=== PATIENT | female | born 1935 | race Caucasian/White ===

== ENCOUNTER 2016-11-28 12:45 | Inpatient (IN) | payer MEDICARE, BC ==
[~2016-11-28] VITALS: Ht 152.4 cm; Wt 75.3 kg
--- NOTE | ~2016-11-28 | HP ---
[facility] 81 Y [address] ROOM: [place] [address] LOCATION: [facility] [place] ADMIT DATE: 11/28/2016 History & Physical DISCHARGE DATE: FAMILY PHYSICIAN: PHYSICIAN, UNKNOWN ATTENDING PHYSICIAN: ANOOP OLMOS DATE OF SERVICE: CHIEF COMPLAINT: Abdominal pain. HISTORY OF PRESENT ILLNESS: An 81-year-old lady with a past medical history of insulin-dependent diabetes mellitus and hypertension. Had abdominal pain, initially about 1 week ago which was located in the right upper quadrant. She went to the local emergency department where did show CBD dilatation and cholelithiasis. General surgery consultation was made and she was planned to undergo cholecystectomy on 12/02/2016, but in the interim, she developed more severe abdominal pain in the right upper quadrant which is sharp, present all the time, 10/10, relieved with medication, increased with food, no radiation, not associated with any fever, but she has been cold. She denied any constipation or diarrhea, but did complain about darkening of urine. No chest pain, shortness of breath, headache, vomiting, or extremity swelling reported. REVIEW OF SYSTEMS: All other systems reviewed are negative except what is mentioned in the HPI. PAST MEDICAL HISTORY: Insulin-dependent diabetes mellitus, hypertension, hypothyroidism, TIA, osteoarthritis. MEDICATIONS: Being reconciled right now. ALLERGIES: THE PATIENT IS ALLERGIC TO CINNAMON AND CODEINE. SOCIAL HISTORY: Never a smoker. No alcohol or drug abuse. FAMILY HISTORY: Significant for diabetes on maternal side. PHYSICAL EXAMINATION: VITAL SIGNS: Blood pressure 145/68, 65, saturating 95% on room air, 16. PATIENT'S NAME: KEVIN SCHULTZ [facility] AGE: 81 Y [address] ROOM: [place] [id number] LOCATION: [facility] [place] ADMIT DATE: 11/28/2016 History & Physical DISCHARGE DATE: FAMILY PHYSICIAN: PHYSICIAN, UNKNOWN ATTENDING PHYSICIAN: ANOOP OLMOS GENERAL: No acute distress. Alert and oriented x3. HEENT: Head is atraumatic, normocephalic. Eyes, positive icterus. Negative pallor. Oropharynx, dry mucous membranes. CARDIOVASCULAR: S1, S2. No murmurs, gallops, rubs. LUNGS: Clear to auscultation bilaterally. ABDOMEN: Soft, tender in the right upper quadrant. No rebound tenderness. No Miller sign noted. Bowel sounds are present. EXTREMITIES: No clubbing, cyanosis, or edema. PSYCH: Normal affect, mood, and speech. SKIN: Mild superficial bruises noted in the bilateral panda area. MUSCULOSKELETAL: No muscle tenderness or joint swelling noted. NEUROLOGIC: Cranial nerves 2 through 12 intact. No motor or sensory deficit noted. Endocrine: No thyromegaly or cushingoid features noted. LYMPHATICS: No lymphangitis or lymphadenopathy present. LABORATORY DATA: Lab work from outside facility was impressive for AST of 770, ALT of 505, alkaline phosphatase of 504, and bilirubin 4.0. She also had creatinine elevating to 1.3. CBC was unremarkable. An ultrasonography was also done today which did show CBD dilatation up to 1.2 cm. No stone could be seen. Previous ultrasonography had similar appearance but less CBD dilatation. ASSESSMENT/PLAN: 1. Acute biliary obstruction. 2. Elevated liver enzymes. 3. Choledocholithiasis. 4. Jaundice. 5. Acute kidney injury. 6. Insulin-dependent diabetes mellitus. 7. Hypertension. PLAN: We are going to admit this lady, made her n.p.o., generous intravenous fluids. One dose of ertapenem has already been given, we will continue that. GI consultation and supportive care with Zofran and pain medication. Likely ERCP by GI and then we will consider General surgery. SCDs for DVT prophylaxis. Sliding scale insulin. HbA1c. Resume home medications. MD CHANCE ANTOINE/gardenia PATIENT'S NAME: KEVIN SCHULTZ [facility] AGE: 81 Y [address] ROOM: [address] [address] LOCATION: [facility] [place] ADMIT DATE: 11/28/2016 History & Physical DISCHARGE DATE: FAMILY PHYSICIAN: PHYSICIAN, UNKNOWN ATTENDING PHYSICIAN: ANOOP OLMOS /[id number] D: [id number] T: [id number] HISTORY & PHYSICAL
--- NOTE | ~2016-11-28 | CON ---
PATIENT'S NAME: KEVIN SCHULTZ [facility] AGE: 81 Y [address] ROOM: [address] [address] [place] [facility] [place]: 11/28/2016 Consultation DISCHARGE DATE: FAMILY PHYSICIAN: PHYSICIAN, UNKNOWN ATTENDING PHYSICIAN: ANOOP OLMOS DATE OF CONSULTATION: 11/29/2016 REASON FOR CONSULTATION: The inpatient consultation is for laparoscopic cholecystectomy. HISTORY OF PRESENT ILLNESS: The patient is an 81-year-old female, admitted yesterday to the medicine service with one-week history of right upper quadrant abdominal pain and associated jaundice. Evaluation at an outside facility revealed a dilated common bile duct and the presence of cholelithiasis. The patient describes her pain at that time is 02/02. She was admitted to the hospital. She was made n.p.o. and was scheduled to have an ERCP performed this morning. The ERCP was performed this morning for diagnosis of choledocholithiasis. At the time of the ERCP, some sludge and purulent material was identified. The duct was cleared. A 7-Urdu stent was placed, and a consultation to General Surgery for laparoscopic cholecystectomy was placed. PAST MEDICAL HISTORY: Significant for insulin-requiring diabetes, hypertension, hypothyroidism, osteoarthritis, and cerebrovascular disease. PAST SURGICAL HISTORY: Significant for abdominal exploration to evaluate diagnosis of infertility. MEDICATIONS: Her inpatient and outpatient medications have been reviewed. ALLERGIES: MEDICATION ALLERGIES ARE TO CODEINE. SOCIAL HISTORY: She is a nonsmoker with no alcohol use. PHYSICAL EXAMINATION: VITAL SIGNS: She is afebrile with normal vital signs. HEENT: She has scleral icterus. Her mucous membranes are dry. Her oropharynx is clear. NECK: Supple. CHEST: Clear. Her cardiac exam is normal. PULMONARY: Normal. PATIENT'S NAME: KEVIN SCHULTZ [facility] AGE: 81 Y [address] ROOM: [address] [address] [place] [facility] [place]: 11/28/2016 Consultation DISCHARGE DATE: FAMILY PHYSICIAN: PHYSICIAN, UNKNOWN ATTENDING PHYSICIAN: ANOOP OLMOS ABDOMEN: Soft and nontender. There are no palpable abdominal masses. There is no organomegaly. There is mild jaundice. LABORATORY DATA: The laboratory evaluation was significant for a bilirubin of 4 and a creatinine of 1.3 on admission. A right upper quadrant ultrasound showed a common bile duct dilatation to 1.2 cm. The remainder of her labs and imaging have been reviewed. IMPRESSION: Choledocholithiasis and symptomatic cholelithiasis. PLAN: The plan will be for laparoscopic cholecystectomy. This can be done today or can be deferred to later in the week, but I recommend this procedure be done prior to the patient's discharge. I will discuss with the patient her surgical options and the timing of this procedure. ZUNILDA FIERRO MD CM/gardenia /[id number] d: 11/29/16 1938 t: 12/04/16 0733, CONSULTATION REPORT
--- NOTE | ~2016-11-28 | CON ---
PATIENT'S NAME: KEVIN SCHULTZ [facility] AGE: 81 Y [address] ROOM: [place] [id number] LOCATION: [facility] [place] ADMIT DATE: 11/28/2016 Consultation DISCHARGE DATE: FAMILY PHYSICIAN: PHYSICIAN, UNKNOWN ATTENDING PHYSICIAN: ANOOP OLMOS DATE OF CONSULTATION: 11/28/2016 HISTORY OF PRESENT ILLNESS: This is an 81-year-old lady, who was admitted through the emergency room with severe right upper quadrant abdominal pain. She has insulin dependent diabetes mellitus and hypertension. Pain in abdomen has been going on for the last 1 week when she was seen in the local hospital emergency room where she was found to have gallstones with dilated common bile duct. She was planned to have a cholecystectomy on 12/02/2016, whereas she started having severe abdominal pain and was transferred here for higher care. Pain in the abdomen was 10/10 on admission which is relieved by morphine. PAST MEDICAL HISTORY: Insulin-dependent diabetes mellitus, hypertension, hypothyroidism, TIA, and osteoarthritis. REVIEW OF SYSTEMS: All review of systems were negative and 10-point other than mentioned above. MEDICATIONS: Reconciled. ALLERGIES: THE PATIENT IS ALLERGIC TO CINNAMON AND CODEINE. SOCIAL HISTORY: She denies smoking and drinking. FAMILY HISTORY: Not significant for abdominal pain. Has diabetes mellitus in maternal side. PHYSICAL EXAMINATION: GENERAL: Reveals well-developed female, who is not in acute discomfort, pain relieved with intravenous morphine injection. VITAL SIGNS: Show blood pressure was 148/67, pulse is 84 per minute, respirations 16 per minute, temperature 99.2 degrees Fahrenheit, weight is 75.35. HEENT: Examination of head, normocephalic and atraumatic. NECK: Supple. No lymphadenopathy. PATIENT'S NAME: KEVIN SCHULTZ [facility] AGE: 81 Y [address] ROOM: [address] [address] LOCATION: [facility] [place] ADMIT DATE: 11/28/2016 Consultation DISCHARGE DATE: FAMILY PHYSICIAN: PHYSICIAN, UNKNOWN ATTENDING PHYSICIAN: ANOOP OLMOS CHEST: Clear to palpation, percussion, auscultation. CARDIAC: Both heart sound normal. No S3 or murmur. ABDOMEN: Soft. It is markedly tender in the right upper quadrant. There is no rebound tenderness. Bowel sounds are active. NEUROLOGICAL: Did not show any lateralization. Cranial nerves 2 through 12 intact. MUSCULOSKELETAL: She moves all upper and lower extremities without any restricted joint disease. She is ambulatory. LABORATORY DATA: Shows her electrolytes are normal. Glucose is 175, albumin 3.3, alkaline phosphatase is 598, AST is 574, ALT is 502, EGFR is 48, creatinine is 1.1. Hemoglobin A1c is 9.9. Her hemoglobin is 14.3, platelet count is 194,000. She had ultrasound done again on arrival showed dilated common bile duct with cholelithiasis. Her bilirubin was 5.5 mg. ASSESSMENT: This lady has obstructive jaundice with high alkaline phosphatase, bilirubin, pain in abdomen, and dilated common bile duct with cholelithiasis most likely it is gallstone related obstructive jaundice. RECOMMENDATION: 1. We should proceed with doing an ERCP with stone retrieval and possible stent placement followed by laparoscopic cholecystectomy. 2. She did not have amylase and lipase. We will go ahead and get that and PT/INR. If the PT is prolonged, we will get prothrombin time with vitamin K. 3. She had one dose of ertapenem. We will go ahead and repeat that at 7 a.m. before ERCP. I had amylase and lipase done, amylase was 40 and lipase was 179. Had a prothrombin time of 11.5 and INR 1.09. We will go ahead and schedule her for ERCP, possible sphincterotomy, stone extraction, and stent placement for tomorrow. Risks and benefits were explained to the patient. About 35 minutes were spent [id number], examination and answering all the questions for her and her family. The patient agreed for the procedure tomorrow. We appreciate sharing care of this patient. MD MICHELLE COPPOLA/gardenia PATIENT'S NAME: KEVIN SCHULTZ [facility] AGE: 81 Y [address] ROOM: [place] [address] LOCATION: [facility] [place] ADMIT DATE: 11/28/2016 Consultation DISCHARGE DATE: FAMILY PHYSICIAN: PHYSICIAN, UNKNOWN ATTENDING PHYSICIAN: ANOOP OLMOS /[id number] d: 11/28/162253 t: 12/01/16816, CONSULTATION REPORT
--- NOTE | ~2016-11-28 | DS ---
PATIENT'S NAME: KEVIN SCHULTZ [facility] AGE: 81 Y [address] ROOM: [place] [address] LOCATION: [facility] [place] ADMIT DATE: 11/28/2016 Discharge Summary DISCHARGE DATE: 12/01/2016 FAMILY PHYSICIAN: Russell Davison MD ATTENDING PHYSICIAN: Varinder Ornelas FINAL DIAGNOSES: 1. Choledocholithiasis. 2. High anion gap metabolic acidosis. 3. Diabetes mellitus, insulin using. 4. Acute kidney injury. PROCEDURES: Include ERCP, sphincterotomy, and stent placement by Dr. Montano. Also, lap vega by Dr. Reyes. CONSULTANTS: Dr. Montano with Gastroenterology and Dr. Reyes with General Surgery. HOSPITAL COURSE: Please see details of admission in H and P by Dr. Ornelas. Briefly, the patient was admitted with severe right upper quadrant abdominal pain. At the local emergency department, she did have a scan which indicated common bile duct dilation and cholelithiasis. The patient was originally scheduled for laparoscopic cholecystectomy on 12/02/2016, but unfortunately her pain became so severe that she presented for emergent evaluation and treatment. The patient was admitted. She was placed on sliding scale insulin for her blood sugars. We used morphine for pain control and Zofran for antiemetic. The patient was placed on ertapenem for empiric cholangitis prevention. The patient was seen and evaluated by Dr. Montano on 11/28/2016. ERCP was planned for the next morning. The patient underwent ERCP with sphincterotomy and stent placement without complication. No stones were retained. Surgery was consulted on the , and the patient was taken for laparoscopic cholecystectomy later on in the day. The patient did well postoperatively. However, later on the , her blood sugar was found to be 433. I did give her extra insulin to correct this as the patient had not received any the day prior. The patient did have lab values consistent with metabolic acidosis and an open anion gap. We started the patient on some gentle hydration with normal saline and resumed her insulin. The patient's labs later in the day indicated closure of the gap and improvement in acidosis. On the , the patient was feeling well, she was tolerating oral intake, her pain was controlled with Tylenol, and her blood sugars were corrected. It was felt that the patient could safely be transferred home with her daughter to assist. DIAGNOSTICS: ERCP on the 6th shows dilated common bile duct with no common bile duct filling defect or stricture noted. The patient's blood sugars PATIENT'S NAME: KEVIN SCHULTZ [facility] AGE: 81 Y [address] ROOM: [place] [address] LOCATION: [facility] [place] ADMIT DATE: 11/28/2016 Discharge Summary DISCHARGE DATE: 12/01/2016 FAMILY PHYSICIAN: Russell Davison MD ATTENDING PHYSICIAN: Varinder Ornelas A ranged from 111-433. On admission, sodium was 141, potassium 3.7, chloride 105, bicarb 24, glucose 175, BUN 17, creatinine 1.1, total bilirubin was 5.5, alkaline phosphatase was 598, AST was 574, and ALT was 502. On the 7th, glucose was found to be 433. Her gap was 24.3 with a bicarb of 14. Prior to discharge, sodium was 144, potassium 3.9, chloride 112, bicarb 25, gap was 10.9, glucose 140, BUN 22, creatinine 1.1, total bilirubin 1.0, alkaline phosphatase 348. AST 34, ALT 118, mag was 1.9. Amylase and lipase were both within normal limits throughout her stay. Hemoglobin A1C was 9.9. On admission, white blood cell count was 9.2, hemoglobin was 14.3, hematocrit 43.5, and platelets 194. White count did trend up to 13.3, but prior to dismissal it was back down to 7.0. Hemoglobins remained stable throughout her stay. Pathology on the gallbladder showed chronic cholecystitis. DISCHARGE INSTRUCTIONS: The patient is discharged home. Diet: As tolerated per diabetic guidelines. Activity: No lifting greater than 10 pounds until seen by her PCP. FOLLOWUP: She will follow up with Dr. Davison in 2 weeks and [facility] in 3 weeks. DISCHARGE MEDICATIONS: 1. Sliding scale insulin per home dose. 2. Levemir 15 units daily. 3. Aspirin 81 mg daily. 4. Catapres 0.1 mg every day as needed. 5. Colace 100 mg twice daily as needed. 6. Crestor 5 mg daily. 7. Triamterene/hydrochlorothiazide 75/50 one tablet daily. 8. Lisinopril 20 mg daily. 9. Multivitamin 1 tab daily. 10. Norvasc 10 mg daily. 11. Levothyroxine 125 mcg daily before breakfast. 12. Vitamin D 50,000 units two times a month. 13. Xanax 0.25 mg p.o. twice daily. 14. Ditropan 5 mg daily. PATIENT'S NAME: KEVIN SCHULTZ [facility] AGE: 81 Y [address] ROOM: [place] [address] LOCATION: [facility] [place] ADMIT DATE: 11/28/2016 Discharge Summary DISCHARGE DATE: 12/01/2016 FAMILY PHYSICIAN: Russell Davison MD ATTENDING PHYSICIAN: Varinder Ornelas We do appreciate participating in this patient's care and thank you very much for the ability to serve her while hospitalized at [facility]. Time spent coordinating details of discharge was 35 minutes of which was spent coordinating with consulting physicians and Care Management, completion of medication reconciliation, and education to the patient and family on above- mentioned diagnoses. RAFA VALENTIN FOR MONICA MERCEDES MD ENA/modl /[id number] d: 12/02/16 0109 t: 12/02/16 1546, DISCHARGE SUMMARY
--- NOTE | ~2016-11-28 | OR ---
PATIENT'S NAME: KEVIN SCHULTZ [facility] AGE: 81 Y [address] ROOM: [place] [address] LOCATION: [facility] [place] ADMIT DATE: 11/28/2016 OR/Procedure Report DISCHARGE DATE: FAMILY PHYSICIAN: PHYSICIAN, UNKNOWN ATTENDING PHYSICIAN: ANOOP OLMOS SURGEON: Jeremy Reyes MD OYSTER FISHERMAN: DATE OF PROCEDURE: 11/29/2016 PREOPERATIVE DIAGNOSIS: Symptomatic cholelithiasis with choledocholithiasis. POSTOPERATIVE DIAGNOSIS: Chronic calculus cholecystitis. PROCEDURE PERFORMED: Laparoscopic cholecystectomy. ANESTHESIA: General endotracheal anesthesia. FINDINGS: Acute and chronic inflammation of the gallbladder with gallstones. SPECIMEN: Gallbladder and contents. COUNTS: The sponge and needle count at the end of the case was correct. COMPLICATIONS: None. DESCRIPTION OF OPERATION: After informed consent was obtained, the patient was taken to the operating room and intubated. She had voided prior to arriving in the operating room and no Whalen catheter was placed. Her anterior abdominal wall was sterilely prepped and draped. A surgical time-out was performed prior to initiation of the procedure. Local anesthetic was administered before each port placement. We began with a small infraumbilical midline stab incision for attempted Veress needle placement. This was unsuccessful x2. I transitioned to a Yenni technique with direct entry into the peritoneum. Through this orifice, I placed an 11-mm trocar. Through this, I past a 5-mm, 30-degree scope. No injury to subjacent bowel was identified. Two right subcostal and a subxiphoid 5-mm port were placed under camera visualization. The gallbladder had adhesions of omentum to it and these were divided with the Harmonic scalpel taking care to avoid injury to adjacent bowel. The gallbladder was retracted superiorly and laterally. Dissection within the triangle of Calot, we identified a cystic duct. A window of safety was created with the liver visible through this window. A top-down technique was used to free the gallbladder from the gallbladder fossa. There was a fair amount of pericholecystic fluid. The gallbladder had evidence of acute and chronic inflammation. With the gallbladder freed from the gallbladder fossa and the cystic artery divided with the Harmonic scalpel, PATIENT'S NAME: KEVIN SCHULTZ [facility] AGE: 81 Y [address] ROOM: [address] [address] LOCATION: [facility] [place] ADMIT DATE: 11/28/2016 OR/Procedure Report DISCHARGE DATE: FAMILY PHYSICIAN: PHYSICIAN, UNKNOWN ATTENDING PHYSICIAN: ANOOP OLMOS the gallbladder was left suspended by the remaining cystic duct. This was doubly ligated with PDS endo-loops x2 and divided with the Harmonic scalpel. It was placed into an EndoCatch bag because it was distended. The gallbladder was decompressed to facilitate extraction. Needle aspiration of the gallbladder was achieved with the gallbladder in an EndoCatch bag to prevent spillage. There was no spillage into the peritoneal cavity. The extracted gallbladder was thick and dark green to black with some sludge. Some bile was sent for culture. The decompressed gallbladder was extracted through the EndoCatch bag through the 11-mm umbilical port. Reinspection of the gallbladder bed showed no evidence of bleeding and two endo-loops in good position on the cystic duct. No other injuries or abnormalities were identified. The ports were removed. The fascia of the 11-mm umbilical port was closed with 0 Vicryl. 4-0 Monocryl and Dermabond were used for all stab incisions. The patient was extubated in the operating room, and taken to the recovery room in stable condition. JEREMY REYES MD CM/gardenia /[id number] d: 11/29/162045 t: 12/04/16 0730, OPERATIVE SUMMARY
--- NOTE | 2016-11-28 17:15 | NUR ---
Patient is an 81 year old female transferred from [facility] to [facility] for increasing abdominal pain. Has had pain for a week and the plan was to take her gallbladder out on Wed but the pain has increased and now her liver enzymes are elevated. Nauseated at times. PMH includes HTN, type 2 diabetes, and early menopause and now gallbladder troubles. Has never fallen, low fall risk. Latex allergy. Cooperative with admission. Family at the bedside.
[2016-11-28 17:32] LABS: BASOPHIL % 0.1 %; EOSINOPHIL # 0.1 K/uL (0.0-0.5); EOSINOPHIL % 0.8 %; HEMATOCRIT 43.5 % (30.0-46.0); HEMOGLOBIN 14.3 g/dL (10.0-15.0); IMMATURE GRANULOCYTE % 0.4 %; LYMPHOCYTE # 0.6 K/uL (0.8-4.0); LYMPHOCYTE % 6.1 %; MCH 29.2 pg (27.0-34.0); MCHC 32.9 gm/dL (32.0-36.5); MCV 88.8 fl (83.0-98.0); MONOCYTE # 0.6 K/uL (0.0-1.0); MPV 10.8 fl (9.4-12.4); NEUTROPHIL # (ANC) 7.9 K/uL (1.8-7.8); NEUTROPHIL % 85.6 %; NRBC % 0 /100WBC (0-0.00); PLATELET COUNT 194 K/uL (150-450); RDW-CV 12.9 % (11.9-14.6); WBC 9.2 K/uL (4.0-11.0)
[2016-11-28] MEDS ORDERED: CATAPRES0.1 MG PO (17:42)
[2016-11-28] MEDS ORDERED: ASPIR 8181 MG PO (17:42)
[2016-11-28] MEDS ORDERED: COLACE100 MG PO (17:43)
[2016-11-28] MEDS ORDERED: CRESTOR5 MG PO (17:43)
[2016-11-28] MEDS ORDERED: TRIAMTERENE-HC1 EAC2 PO (17:45)
[2016-11-28] MEDS ORDERED: PRINIVIL (ZESTR20 MG PO (17:47)
[2016-11-28] MEDS ORDERED: LANTUS SOL100 UNIT/1 SUB-Q (17:47)
[2016-11-28] MEDS ORDERED: NORVASC10 MG PO (17:48)
[2016-11-28] MEDS ORDERED: THERAGRAN-M1 TAB PO (17:48)
[2016-11-28] MEDS ORDERED: NOVOLOG100 UNIT/M SUB-Q (17:50)
[2016-11-28] MEDS ORDERED: LEVOTHROID (S125 MCG PO (17:51)
[2016-11-28] MEDS ORDERED: XANAX0.25 MG PO (17:52)
[2016-11-28] MEDS ORDERED: VITAMIN D50000 UNIT PO (17:52)
[2016-11-28 17:53] LABS: ALBUMIN 3.3 gm/dL (3.5-5.0); ANION GAP 15.7 (10.0-19.0); CALCIUM 8.6 mg/dL (8.5-10.5); CREATININE 1.1 mg/dL (0.5-1.1); POTASSIUM 3.7 mMol/L (3.7-5.1); TOTAL BILIRUBIN 5.5 mg/dL (0.0-1.5); TOTAL PROTEIN 6.2 g/dL (6.0-8.4)
[2016-11-28] MEDS ORDERED: DITROPAN XL5 MG PO (17:54)
--- NOTE | 2016-11-28 17:56 | NUR ---
Significant Event: Patient is alert and oriented x3. VSS and RA. Zofran given x1, relief noted. Fluids started x1.5 liters. Accuchecks Q6 hours. Type 2 diabetes. Up with SBA. Pain meds given last on her ride here. She arrived around 1415. NPO. Voiding okay. Cooperative with cares.
[2016-11-28 21:29] LABS: INR - (THERAPEUTIC) 1.09 (0.92-1.07); PROTIME 11.5 SECONDS (9.8-11.4)
--- NOTE | 2016-11-29 02:18 | NUR ---
Significant Event:Dr Montano came to see patient tonight and she will have an ERCP in the am. Has been NPO since she came to the floor. Consents are signed and pre-op check list mostly completed. Had morphine 2 mg x 2 last at 2215 Is saline locked. Accucheck at 2300 was 197. Up to bathroom with stand-by assist. Pleasant and cooperative with cares, alert and orientated. Follow up: Continue to monitor.
[2016-11-29 05:13] LABS: BASOPHIL % 0.3 %; EOSINOPHIL # 0.2 K/uL (0.0-0.5); EOSINOPHIL % 2.8 %; HEMATOCRIT 37.4 % (30.0-46.0); HEMOGLOBIN 12.3 g/dL (10.0-15.0); IMMATURE GRANULOCYTE % 0.3 %; LYMPHOCYTE # 0.7 K/uL (0.8-4.0); LYMPHOCYTE % 11.2 %; MCH 29.6 pg (27.0-34.0); MCHC 32.9 gm/dL (32.0-36.5); MCV 89.9 fl (83.0-98.0); MONOCYTE # 0.6 K/uL (0.0-1.0); MONOCYTE % 8.6 %; MPV 10.2 fl (9.4-12.4); NEUTROPHIL % 76.8 %; NRBC % 0 /100WBC (0-0.00); PLATELET COUNT 195 K/uL (150-450); RBC 4.16 M/uL (3.00-5.00); RDW-CV 13.3 % (11.9-14.6); WBC 6.5 K/uL (4.0-11.0)
[2016-11-29 05:34] LABS: ALBUMIN 2.5 gm/dL (3.5-5.0); ANION GAP 11.3 (10.0-19.0); CALCIUM 8.3 mg/dL (8.5-10.5); CREATININE 1.2 mg/dL (0.5-1.1); POTASSIUM 3.3 mMol/L (3.7-5.1); TOTAL BILIRUBIN 4.8 mg/dL (0.0-1.5); TOTAL PROTEIN 5.2 g/dL (6.0-8.4)
--- NOTE | 2016-11-29 17:52 | NUR ---
Significant Event: Patient is alert and oriented x3. VSS and on 4 liters of O2 at this time. Had ERCP and lap vega today. Sludge was removed and stent was placed. Accuchecks AC/HS. 4 lap sites- skin glue. Activity as tolerated, up as soon as possible. Clear liquids. Sugammmadix was given in PACU. Continue to monitor breathing closely. Family at the bedside. Has taken in some sips of water. Cooperative with cares.
--- NOTE | 2016-11-30 04:38 | NUR ---
Significant Event: Patient was doing well status gallbladder and ERCP. Taking in fluids, denying pain, ambulated in the hallway x 1. Vitals have been stable weaning 02 off. Around 0115 patient started having nausea and an emesis of 100. Patient recieved zofran at that time which didn't help. Order for phenergan 25 mg IM was received and given with 2 mg of morphine for upper abdominal pain. Very worried about this, surgeon here and told her it should pass. Follow up: CMP and CBC in am.
[2016-11-30 05:52] LABS: BASOPHIL % 0.2 %; HEMATOCRIT 42.7 % (30.0-46.0); HEMOGLOBIN 13.6 g/dL (10.0-15.0); IMMATURE GRANULOCYTE # 0.1 K/uL (0.0-0.3); IMMATURE GRANULOCYTE % 0.7 %; LYMPHOCYTE # 0.7 K/uL (0.8-4.0); LYMPHOCYTE % 4.9 %; MCH 29.8 pg (27.0-34.0); MCHC 31.9 gm/dL (32.0-36.5); MCV 93.6 fl (83.0-98.0); MONOCYTE # 0.7 K/uL (0.0-1.0); MONOCYTE % 5.3 %; MPV 11.3 fl (9.4-12.4); NEUTROPHIL # (ANC) 11.8 K/uL (1.8-7.8); NEUTROPHIL % 88.9 %; NRBC % 0 /100WBC (0-0.00); RBC 4.56 M/uL (3.00-5.00); RDW-CV 13.7 % (11.9-14.6); WBC 13.3 K/uL (4.0-11.0)
[2016-11-30 05:56] LABS: PLATELET COUNT 256 K/uL (150-450)
[2016-11-30 06:08] LABS: ALBUMIN 2.7 gm/dL (3.5-5.0); CALCIUM 8.3 mg/dL (8.5-10.5); CREATININE 1.7 mg/dL (0.5-1.1); TOTAL PROTEIN 6.2 g/dL (6.0-8.4)
[2016-11-30 06:09] LABS: ANION GAP 24.3 (10.0-19.0); POTASSIUM 4.3 mMol/L (3.7-5.1)
[2016-11-30 06:11] LABS: TOTAL BILIRUBIN 1.8 mg/dL (0.0-1.5)
--- NOTE | 2016-11-30 11:14 | NUR ---
Diabetes consult; Patient with a history of diabetes and is on basal/bolus insulin at home. The patient reports taking Levemir 22 units every a.m. as well as Novolog 10 units with meals. The patient did undergo surgery yesterday and blood sugars were controlled with Novolog moderate correction. Blood sugar increased to 392 last evening and 396 this morning. The patient reports not feeling well and has poor po intake. Blood sugar trends were discussed with RAFA [facility], and a plan to restart her Levemir at a reduced dose of 15 units this a.m. was ordered. Her current A1C is 9.9% however, the patient reports this is improved from her A1C, two months ago which was "11%". She reports seeing Dr. Aleman an manager practice in [place] for insulin adjustments. In addition, she reports testing her blood sugars five times per day and states she has plenty of testing supplies and insulin at home. Her daughter is at bedside. She has no further concerns or questions. Diabetes survival skills checklist completed and primary care nurse updated on the above plan.
--- NOTE | 2016-11-30 11:15 | NUR ---
Introduced self/role to patient. She was very sleepy and kept falling asleep during our conversation. Wrote my name on her marker board. Called her daughter, she just went out to the car and will be back in soon. 1130 Introduced self/role to patients daughter Marci. Mom was independent prior and has good neighbor/family supports. Denied any barriers to going home or at home. No DME needed.
[2016-11-30 15:55] LABS: ALBUMIN 2.6 gm/dL (3.5-5.0); ANION GAP 14.8 (10.0-19.0); CALCIUM 8.5 mg/dL (8.5-10.5); CREATININE 1.6 mg/dL (0.5-1.1); MAGNESIUM 1.9 mg/dL (1.8-2.6); PHOSPHORUS 2.2 mg/dL (2.5-4.9); POTASSIUM 3.8 mMol/L (3.7-5.1)
[2016-11-30 16:32] LABS: BASOPHIL % 0.1 %; EOSINOPHIL # 0.1 K/uL (0.0-0.5); EOSINOPHIL % 0.8 %; HEMATOCRIT 38.5 % (30.0-46.0); HEMOGLOBIN 12.6 g/dL (10.0-15.0); IMMATURE GRANULOCYTE # 0.1 K/uL (0.0-0.3); IMMATURE GRANULOCYTE % 0.6 %; LYMPHOCYTE # 0.9 K/uL (0.8-4.0); LYMPHOCYTE % 10.4 %; MCH 29.6 pg (27.0-34.0); MCHC 32.7 gm/dL (32.0-36.5); MCV 90.6 fl (83.0-98.0); MONOCYTE # 0.8 K/uL (0.0-1.0); MONOCYTE % 9.4 %; MPV 10.4 fl (9.4-12.4); NEUTROPHIL # (ANC) 7.1 K/uL (1.8-7.8); NEUTROPHIL % 78.7 %; NRBC % 0 /100WBC (0-0.00); PLATELET COUNT 239 K/uL (150-450); RBC 4.25 M/uL (3.00-5.00); RDW-CV 13.9 % (11.9-14.6)
--- NOTE | 2016-11-30 17:19 | NUR ---
PATIENT ORIENTED X3. SLIGHTLY DROWSY. IV TO LEFT AC HAS NS TRA 80/HR [id number]. PATIENT PLEASANT AND COOPERATIVE WITH CARES. UP WITH SBA. ON ROOM AIR. ZOFRAN GIVE PRN X1 AT 0650 FOR NAUSEA. REPORTED EFFECTIVENESS, TOLEARTING DIABETIC DIET. DENIES NEEDS
--- NOTE | 2016-12-01 02:38 | NUR ---
Significant Event: PT AO. VSS, STARTED ON O2 FOR SATS OF 86% ON FIRST ASSESSMENT, WAS 93% ON SECOND, TITRATED TO 1L O2. AFEBRILE. IVF RUNNING TO L AC, ON BAG . ACCUCHECKS Q4HR, MODERATE SSI. AMBULATED IN BLOOD WITH SBA, GAITBELT- NEEDED LOTS OF ENCOURAGEMENT TO DO. LAP SITES X4 TO ABDOMEN. PT DENIES PAIN, DENIES NAUSEA. ONLY ATE BITES OF DINNER. DIABETIC DIET. Follow up: AMBULATE, Q4HR ACCUCHECKS
[2016-12-01 06:34] LABS: BASOPHIL % 0.4 %; EOSINOPHIL # 0.2 K/uL (0.0-0.5); EOSINOPHIL % 2.9 %; HEMATOCRIT 36.9 % (30.0-46.0); HEMOGLOBIN 12.1 g/dL (10.0-15.0); IMMATURE GRANULOCYTE # 0.1 K/uL (0.0-0.3); IMMATURE GRANULOCYTE % 0.7 %; LYMPHOCYTE # 1.1 K/uL (0.8-4.0); LYMPHOCYTE % 15.9 %; MCHC 32.8 gm/dL (32.0-36.5); MCV 91.3 fl (83.0-98.0); MONOCYTE # 0.6 K/uL (0.0-1.0); MONOCYTE % 7.9 %; MPV 10.3 fl (9.4-12.4); NEUTROPHIL % 72.2 %; NRBC % 0 /100WBC (0-0.00); PLATELET COUNT 222 K/uL (150-450); RBC 4.04 M/uL (3.00-5.00)
[2016-12-01 06:52] LABS: ALBUMIN 2.3 gm/dL (3.5-5.0); ANION GAP 10.9 (10.0-19.0); CALCIUM 8.6 mg/dL (8.5-10.5); CREATININE 1.1 mg/dL (0.5-1.1); MAGNESIUM 1.9 mg/dL (1.8-2.6); POTASSIUM 3.9 mMol/L (3.7-5.1); TOTAL PROTEIN 5.2 g/dL (6.0-8.4)
--- NOTE | 2016-12-01 13:49 | NUR ---
[facility] center note: 1000 Continue to assess blood sugars, after Levemir insulin restarted on 11.30.16 0310 today 111 and 0714 129 No further educational needs identified at this time.
--- NOTE | 2016-12-01 15:06 | NUR ---
Significant event: Up in [facility] with one assist. Ambulate in room with one assit. Shower done today. Denies pain. Appetite good. Dismissed to home with daughter.
--- NOTE | 2016-12-01 17:59 | NUR ---
DISCHARGE: Pt. and daughter were educated on lap vega after care and surgery. No questions or concerns, verbalized understanding of discharge teaching. IV removed by primary nurse. Left with all belongings and prescriptions. Taken to front door by aide and driven home by daughter.
== END 2016-12-01 14:00 | disposition disaster alternative care site (69) | DRG 418 ==
LOC: GMSU 12:45
PROVIDERS: Internal Medicine Adolescent Medicine; Physician Assistant; Surgery; ADMIT Internal Medicine
PROC: 0FT44ZZ Resection of Gallbladder, Percutaneous Endoscopic Approach (ICD-10-PCS; principal; 2016-11-29)
PROC: 0F798ZZ Dilation of Common Bile Duct, Via Natural or Artificial Opening Endoscopic (ICD-10-PCS; 2016-11-29)
DX: K80.37 Calculus of bile duct with acute and chronic cholangitis with obstruction (principal); E87.2 Acidosis; N17.9 Acute kidney failure, unspecified; E11.9 Type 2 diabetes mellitus without complications; I12.9 Hypertensive chronic kidney disease with stage 1 through stage 4 chronic kidney disease, or unspecified chronic kidney disease; N18.3 Chronic kidney disease, stage 3 (moderate); Z79.82 Long term (current) use of aspirin; Z79.4 Long term (current) use of insulin; E03.9 Hypothyroidism, unspecified; Z86.73 Personal history of transient ischemic attack (TIA), and cerebral infarction without residual deficits; M19.90 Unspecified osteoarthritis, unspecified site
CPT/HCPCS: C1769; C9399; J1335; J1610; J2001; J2270; J2405; J2550; J3480; J7030; J7040; J7050; J7120

== ENCOUNTER → 2017-01-05 | Day surgery (SDC) | payer MEDICARE, BC ==
[~2017-01-05] VITALS: Ht 149.9 cm; Wt 77.0 kg
[~2017-01-05] MED LIST: ASPIR 8181 MG PO; CATAPRES0.1 MG PO; COLACE100 MG PO; CRESTOR5 MG PO; DITROPAN XL5 MG PO; LANTUS SOL100 UNIT/1 SUB-Q; LEVOTHROID (S125 MCG PO; NORVASC10 MG PO; NOVOLOG100 UNIT/M SUB-Q; PRINIVIL (ZESTR20 MG PO; THERAGRAN-M1 TAB PO; TRIAMTERENE-HC1 EAC2 PO; VITAMIN D50000 UNIT PO; XANAX0.25 MG PO
== END ==
LOC: GPOC 01-01 13:00 → GEND 08:30 → EDSTATUS 09:00 → GPOC 09:00
PROC: 0FC98ZZ Extirpation of Matter from Common Bile Duct, Via Natural or Artificial Opening Endoscopic (ICD-10-PCS; principal; 2017-01-05)
DX: Z45.89 Encounter for adjustment and management of other implanted devices (principal); K83.8 Other specified diseases of biliary tract; I10 Essential (primary) hypertension; E11.9 Type 2 diabetes mellitus without complications; E03.9 Hypothyroidism, unspecified; M17.9 Osteoarthritis of knee, unspecified; G45.9 Transient cerebral ischemic attack, unspecified; Z79.82 Long term (current) use of aspirin; Z79.52 Long term (current) use of systemic steroids; Z79.899 Other long term (current) drug therapy
CPT/HCPCS: J2001; J7030